=== PATIENT | female | born 1950 | race Caucasian/White ===

== ENCOUNTER 2019-09-13 13:15 | Emergency (ER) | payer MEDICARE ==
[2019-09-13 13:33] LABS: ABS Basophils 0.1 10^3/ul (0-0.2); ABS Eosinophils 0.1 10^3/ul (0-0.6); ABS Lymphocytes 0.8 10^3/ul (1.0-4.8); ABS Monocytes 0.4 10^3/ul (0-0.8); ABS Neutrophils 5.2 10^3/ul (1.5-7.7); Eosinophil % 1.6 %; Hematocrit 42 % (35-47); Hemoglobin 14.4 g/dL (12.0-16.0); Lymphocyte % 12.1 %; Mean Corpuscular HGB Conc 34 g/dL (31-36); Mean Corpuscular Hemoglobin 32 pg (27-31); Mean Corpuscular Volume 92 fL (80-97); Mean Platelet Volume 8.5 fL (7.4-10.4); Platelet Count 360 10^3/uL (150-450); Red Blood Count 4.56 10^6 /uL (3.70-4.87); Red Cell Distribution Width 14 % (10-15); White Blood Count 6.6 10^3/uL (3.5-10.8)
--- NOTE | 2019-09-13 13:40 | ED ---
HPI Chest Pain - HPI Summary HPI Summary: 68-year-old female with no significant past medical history presents to emergency department complaining of chest pain which began this morning. She states she woke up this morning and had a 6 out of 10 constant "aching" pain and a 8 out of 10 intermittent "stabbing" pain which lasts for seconds which is located at her sternum and wrapped around her left breast. She states nothing alleviates her symptoms and nothing makes her symptoms worse. She states she is not taking anything for her pain prior to arrival. She denies chest pain with exertion. She denies associated symptoms such as diaphoresis, shortness of breath, abdominal pain, arm numbness, jaw numbness. She states she has a significant family history of angina. Pt endorses estrogen therapy. She denies occasional drug use but endorses occasional alcohol use. She denies smoking, hyperlipidemia, hypertension, family history of myocardial infarction, family history of polycystic kidney disease, diabetes, recent long distance travel, surgery, immobilization, fever. - History of Current Complaint Time Seen by Provider: 09/13/19 13:25 Hx Obtained From: Patient Onset/Duration: Started Hours Ago Timing: Constant, Intermittent, Lasting Seconds Initial Severity: Moderate Current Severity: Moderate Pain Scale Used: 0-10 Numeric Chest Pain Location: Mid Sternal, Lower Sternal, Left Anterior Chest Pain Radiates: No Character: Dull/Aching, Sharp/Stabbing Aggravating Factor(s): Nothing Alleviating Factor(s): Nothing Associated Signs and Symptoms: Positive: Chest Pain. Negative: Recent Stress, Numbness, Tingling, Shortness of Breath, Syncope, Fever, Lightheadedness, Diaphoresis, Nausea, Palpitations, Calf Pain/Swelling - Allergy/Home Medications Allergies/Adverse Reactions: Allergies Allergy/AdvReac Type Severity Reaction Status Date / Time erythromycin base Allergy Dizziness Verified 09/13/19 13:36 Tetracyclines Allergy Dizziness Verified 09/13/19 13:36 Home Medications: Home Medications Budesonide/Formote 160/4.5(NF) [Symbicort 160/4.5 (NF)] 2 puff INH BID 09/13/19 [History Confirmed 09/13/19] PMH/Surg Hx/FS Hx/Imm Hx Endocrine/Hematology History: Denies: Hx Diabetes, Hx Thyroid Disease Cardiovascular History: Denies: Hx Hypertension, Hx Pacemaker/ICD Respiratory History: Reports: Hx Asthma - SEASONAL Denies: Hx Chronic Obstructive Pulmonary Disease (COPD) GI History: Denies: Hx Ulcer Musculoskeletal History: Denies: Hx Rheumatoid Arthritis, Hx Osteoporosis - OSTEOPENIA Sensory History: Denies: Hx Hearing Aid Psychiatric History: Denies: Hx Panic Disorder - Surgical History Surgery Procedure, Year, and Place: sinus surgery FOR POLYPS X 3, Infectious Disease History: Denies: Hx Hepatitis, Hx Human Immunodeficiency Virus (HIV) - Family History Known Family History: Positive: Hypertension, Other - breast cancer, restless leg syndrome - Social History Alcohol Use: Occasionally Substance Use Type: Reports: None Smoking Status (MU): Never Smoked Tobacco Review of Systems Constitutional: Negative Positive: Chest Pain. Negative: Palpitations Negative: Shortness Of Breath Negative: Abdominal Pain, Diarrhea, Nausea Positive: frequency Musculoskeletal: Negative Skin: Negative Neurological: Negative Psychological: Normal All Other Systems Reviewed And Are Negative: Yes Physical Exam Triage Information Reviewed: Yes Vital Signs Reviewed: Yes Appearance: Positive: Well-Appearing, No Pain Distress Skin: Positive: Warm, Skin Color Reflects Adequate Perfusion Eyes: Positive: EOMI, MO ENT: Positive: Hearing grossly normal Respiratory/Lung Sounds: Positive: Clear to Auscultation, Breath Sounds Present Cardiovascular: Positive: RRR, S1, S2 Abdomen Description: Positive: Nontender, Soft Bowel Sounds: Positive: Present Musculoskeletal: Positive: Normal, Strength/ROM Intact Neurological: Positive: Sensory/Motor Intact, CN Intact II-III, Normal Gait Psychiatric: Positive: Normal AVPU Assessment: Alert Procedures - Sedation Patient Received Moderate/Deep Sedation with Procedure: No Diagnostics - Laboratory Lab Results: Lab Results 09/13/19 Range/Units 13:26 WBC 6.6 (3.5-10.8) 10^3/uL RBC 4.56 (3.70-4.87) 10^6 /uL Hgb 14.4 (12.0-16.0) g/dL Hct 42 (35-47) % MCV 92 (80-97) fL MCH 32 H (27-31) pg MCHC 34 (31-36) g/dL RDW 14 (10-15) % Plt Count 360 (150-450) 10^3/uL MPV 8.5 (7.4-10.4) fL Neut % (Auto) 79.4 % Lymph % (Auto) 12.1 % Evans % (Auto) 6.0 % Eos % (Auto) 1.6 % Baso % (Auto) 0.9 % Absolute Neuts (auto) 5.2 (1.5-7.7) 10^3/ul Absolute Lymphs (auto) 0.8 L (1.0-4.8) 10^3/ul Absolute Monos (auto) 0.4 (0-0.8) 10^3/ul Absolute Eos (auto) 0.1 (0-0.6) 10^3/ul Absolute Basos (auto) 0.1 (0-0.2) 10^3/ul Absolute Nucleated RBC 0.0 10^3/ul Nucleated RBC % 0.0 Result Diagrams: 09/13/19 13:26 09/13/19 13:26 Lab Statement: Any lab studies that have been ordered have been reviewed, and results considered in the medical decision making process. Chest Pain Course/Dx - Course Course Of Treatment: Patient was evaluated in the emergency department today for chest pain. Patient's vitals were stable and she is afebrile. The patient seen and examined. An EKG, laboratory studies including troponin were ordered. EKG revealed normal sinus rhythm at a rate of 77 bpm with a left bundle branch block. There is a normal [place] interval however there is a prolonged QTc interval at 536. Normal axis is appreciated. There is no old EKG to compare with. Laboratory results returned showing Laboratory studies returned showing no leukocytosis or signs of anemia. There are no electrolytes abnormalities. Urinalysis shows no evidence of UTI. Initial troponin returned 0.01. Serial troponin showed 0.01. Serial troponins were non suggestive of OH. HEART Score of 3. Wells score of 0, PERC positive. D-Dimer was ordered to investigate possibility of PE. D-dimer negative at <200. Is unknown what is causing her chest pain however life-threatening causes such as myocardial infarction, pulmonary embolism, pericarditis have been ruled out. She is to follow-up with her primary care provider on Sunday for further evaluation and management of her symptoms. She is to return to the emergency department immediately if she develops any new or worsening symptoms. - Chest Pain Differential Diagnosis/HQI/PQRI: Acute OH, ACS, Angina, Aortic Aneurysm, CHF, Chest Wall, Pulmonary Edema, Pulmonary Embolism - Diagnoses Provider Diagnoses: Chest pain Discharge ED - Sign-Out/Discharge Documenting (check all that apply): Patient Departure - Discharge Plan Condition: Stable Disposition: HOME Patient Education Materials: Angina (ED) Referrals: Filemon Flores DO [Medical Doctor] - Purvi Harry MD [Primary Care Provider] - 3 Days Additional Instructions: You were seen in the emergency department for chest pain. Laboratory studies were done as well as an EKG which revealed no evidence of a heart attack or other life-threatening pathology. It is unknown as to what the cause of your chest pain as however you should follow up with your primary care provider on Sunday for further evaluation and management of this pain. Please follow up with your primary care doctor for other tests such as a stress test for further investigation to the cause of your pain. Please return to the emergency department immediately if you develop any new or worsening symptoms. - Billing Disposition and Condition Condition: STABLE Disposition: Home - Attestation Statements Provider Attestation: I was available for consult. This patient was seen by the ANGELLA. The patient was not presented to, seen by, or examined by me. Edwin Pena MD
[2019-09-13 13:44] LABS: Albumin 4.2 g/dL (3.2-5.2); Calcium 9.7 mg/dL (8.6-10.3); Total Bilirubin 0.6 mg/dL (0.2-1.0)
[2019-09-13 13:47] LABS: INR 0.98 (0.82-1.09)
[2019-09-13 13:50] LABS: Albumin/Globulin Ratio 1.4 (1-3); BUN/Creatinine Ratio 13.7 (8-20); EGFR African American 96.5 (>60); EGFR Non-African American 79.8 (>60); Total Protein 7.2 g/dL (6.4-8.9)
[2019-09-13 13:52] LABS: Troponin I 0.01 ng/mL (<0.03)
[2019-09-13 13:54] LABS: Urine Appearance Cloudy; Urine Bilirubin Negative (Negative); Urine Blood Negative (Negative); Urine Color Yellow; Urine Glucose Negative (Negative); Urine Ketones Negative (Negative); Urine Nitrite Negative (Negative); Urine Protein Negative (Negative); Urine Specific Gravity 1.003 (1.010-1.030); Urine Urobilinogen Negative (Negative)
[2019-09-13 17:36] VITALS: BP 151/78
== END 2019-09-13 17:30 | disposition home or self-care (01) ==
LOC: ED 13:15
DX: R07.9 Chest pain, unspecified (principal); J45.909 Unspecified asthma, uncomplicated; Z88.1 Allergy status to other antibiotic agents
CPT/HCPCS: 36415; 80053; 81003; 84484; 85025; 85379; 85610; 93005; 99283